=== PATIENT | male | born 1930 | race Caucasian/White ===

== ENCOUNTER 2018-10-19 16:16 | Emergency (ER) | payer MEDICARE, BC ==
[~2018-10-19] VITALS: Ht 167.6 cm; Wt 79.1 kg
[~2018-10-19 16:16] MED LIST: ZOFRAN ODT4 MG SL
[2018-10-19] MEDS ORDERED: PREDNISONE5 MG PO (16:41)
[2018-10-19] MEDS ORDERED: AMLODIPINE BESYL5 MG PO (16:41)
[2018-10-19] MEDS ORDERED: CLOPIDOGREL75 MG PO (16:42)
[2018-10-19] MEDS ORDERED: ATORVASTATIN CA40 MG PO (16:42)
[2018-10-19] MEDS ORDERED: FINASTERIDE5 MG PO (16:42)
[2018-10-19] MEDS ORDERED: CARVEDILOL3.125 MG PO (16:42)
[2018-10-19] MEDS ORDERED: LISINOPRIL10 M1 PO (16:42)
[2018-10-19] MEDS ORDERED: LEVOTHYROXIN25 MC1 PO (16:43)
[2018-10-19 17:20] VITALS: BP 137/63
== END 2018-10-19 17:20 | disposition home or self-care (01) ==
LOC: ED 16:16
DX: S51.011A Laceration without foreign body of right elbow, initial encounter (principal); I10 Essential (primary) hypertension; W00.0XXA Fall on same level due to ice and snow, initial encounter; Y92.524 Gas station as the place of occurrence of the external cause; Z86.73 Personal history of transient ischemic attack (TIA), and cerebral infarction without residual deficits

== ENCOUNTER 2018-11-17 14:42 | Observation (INO) | payer MEDICARE, BC ==
[~2018-11-17] VITALS: Ht 167.6 cm; Wt 65.0 kg
[~2018-11-17 14:42] MED LIST changes: +AMLODIPINE BESYL5 MG PO; +ATORVASTATIN CA40 MG PO; +CARVEDILOL3.125 MG PO; +CLOPIDOGREL75 MG PO; +FINASTERIDE5 MG PO; +LEVOTHYROXIN25 MC1 PO; +LISINOPRIL10 M1 PO; +PREDNISONE5 MG PO
--- NOTE | 2018-11-17 15:15 | NUR ---
INFORMED OF BRADYCARDIA.
--- NOTE | 2018-11-17 15:20 | NUR ---
PATIENT REPORTS BEING AT HOME WHEN HE BECAME WEAK, DENIES LOC OR FALLING. IS ALERT AND ORIENTED X4, DENIES ANY CHEST PAIN OR SOB. BLOOD GLUCOSE 88. SB ON INTEGRATION ANALYST. AT BEDSIDE FOR EXAM.
[2018-11-17 15:43] LABS: HEMATOCRIT 32.5 % (39.0-50.0); HEMOGLOBIN 10.8 g/dl (14.0-18.0); IMMATURE GRANULOCYTES 0.6 % (0.0-5.0); MEAN CELL VOLUME 98.8 fL CALC (80.0-100.0); MEAN CORPUSCULAR HGB 32.8 pG CALC (26.0-32.0); MEAN CORPUSCULAR HGB CONC 33.2 g/L CALC (32.0-36.0); NEUT# 9.3 thou/uL (1.82-7.42); RED BLOOD COUNT 3.29 mill/uL (4.70-6.10)
[2018-11-17 15:55] LABS: ALBUMIN 3.4 g/dL (3.2-5.0); ALKALINE PHOSPHATASE 70 u/l (38-126); ANION GAP 12 (6-22 (CALC)); BILIRUBIN, TOTAL 0.3 mg/dL (0.0-1.4); BUN 28 mg/dL (8-23); BUN/CREATININE RATIO 23 (12-20 (CALC)); CARBON DIOXIDE 23 mmol/l (22-30); CHLORIDE 102 mmol/l (95-108); CREATININE 1.2 mg/dL (0.7-1.3); GFR 57 ML/MIN (>=60 (CALC)); GFR FOR AFR.AMER. > 60 ML/MIN (>=60 (CALC)); POTASSIUM 3.6 mmol/l (3.5-5.1); SGOT/AST 24 u/l (19-48); SODIUM 133 mmol/l (137-146); TOTAL PROTEIN 6.3 g/dL (6.3-8.2)
[2018-11-17 16:03] LABS: INTERNATIONAL NORMALIZED RATIO 0.9 RATIO (0.7-1.3); PROTHROMBIN TIME 9.9 SECONDS (9.0-12.5)
[2018-11-17] MEDS ORDERED: SG ASA LOW81 M1 PO (16:32)
[2018-11-17] MEDS ORDERED: AGGRENOX 200/251 CAP PO (16:33)
--- NOTE | 2018-11-17 16:35 | NUR ---
MED REC COMPLETED WITH PATIENT.
--- NOTE | 2018-11-17 16:53 | NUR ---
ORTHOSTATIC BP OBTAINED, DENIES ANY WEAKNESS, DIZZINESS, OR BEING LIGHTHEADED. STATES "I DONT FEEL LIKE I DID EARLIER." PATIENT UPDATED ON PLAN OF CARE AND WAIT TIME. VERBAL UNDERSTANDING. FAMILY AT BEDSIDE, WILL CONTINUE TO MONITOR.
--- NOTE | 2018-11-17 18:14 | NUR ---
PATIENT ASSISTED TO SIDE OF BED TO USE URINAL. 425 ML OF URINE OUT. DENIES ANY DIZZINESS OR LIGHTHEADEDNESS UPON STANDING. UPDATED ON WAIT TIME. WILL CONTINUE TO MONITOR.
--- NOTE | 2018-11-17 18:20 | NUR ---
AT BEDSIDE TO DISCUSS RESULTS AND ADMIT.
--- NOTE | 2018-11-17 19:03 | NUR ---
REPORT CALLED TO DENG GARCÍA. REQUEST TO CALL PRIOR TO TRANSPORT. WAITING ON FLOOR ORDERS. REPORTS GIVEN TO DENG HARRIS. CARE RELINQUISHED.
--- NOTE | 2018-11-17 19:05 | NUR ---
PT. AWAITING TO BE ADMITTED UPSTAIRS.
--- NOTE | 2018-11-17 19:50 | NUR ---
PT. TAKEN TO [place] FLOOR VIA STRETCHER, NO C/O.
[2018-11-17 20:45] VITALS: BP 171/73
--- NOTE | 2018-11-17 21:00 | NUR ---
PATIENT ADMITTED FROM ER VIA STRETCHER WITH ER STAFF IN ATTENDANCE. PATIENT AMB TO THE STANDING SCALE AND THEN TO BED-STEADY ON HIS FEET. PATIENT IS AWAKE ALERT AND ORIENTEDX3. PATIENT STATES THAT HE WAS HOME TODAY BEFORE LUNCH AND SUDDENLY BROKEOUT INTO A COLD SWEAT AND BECAME EXTREMELY WEAK. SAT DOWN AND CALLED 911-WAS BROUGHT TO THE ER FOR EVAL. PATIENT DOES LIVE ALONE. TELE MONITOR IN PLACE. IV SITE TO LEFT FOREARM INTACT AND APPEARS HEALTHY AT THIS TIME. LUNGS ARE CLEAR. ABD IS SOFT-BS+. NO PEDAL EDEMA NOTED. PULSE ARE PRESENT. PATIENT ORIENTED TO ROOM AND SURROUDINGS. INSTRUCTED ON USE OF NURSE CALL LIGHT SYSTEM, TV REMOTE AND TELEPHONE. SAFETY PRECAUTIONS REVIEWED WITH THE PATIENT. PATIENT ATE DINNER THAT THE FAMILY BROUGHT IN. DENIES ANY PAIN AT THIS TIME. CALL LIGHT IN REACH. WILL CONT TO MONITOR.
[2018-11-17 22:04] VITALS: BP 139/68
[2018-11-17 23:35] VITALS: BP 133/79
--- NOTE | 2018-11-18 00:27 | NUR ---
RESTING IN BED WITH NO COMPLAINTS. TELE MONITOR IN PLACE. TROP DRAWN ORDERED. CALL LIGHT IN REACH. WILL CONT TO MONITOR.
[2018-11-18 04:10] VITALS: BP 129/72
--- NOTE | 2018-11-18 04:27 | NUR ---
PATIENT RESTING IN BED AT THIS TIME-APPEARS SLEEPING WITH EYES CLOSED-POSITIONED ON LEFT SIDE. RESP ARE EVEN AND UNLABORED. TELE MONITOR IN PLACE. CALL LIGHT IN REACH. WILL CONT TO MONITOR.
--- NOTE | 2018-11-18 07:00 | NUR ---
REPORT RECEIVED FROM DENG GARCÍA;PT RESTING IN SEMI FOWLERS POSITION;RESPIRATIONS EVEN AND UNLABORED ON RA;INTRODUCED SELF TO PT AND POC DISCUSSED;PT ALERT AND ORIENTED X3;PT ASSISTED TO RESTROOM AND HAD SMALL/BROWN BM;RE-POSITIONED BACK INTO BED;PT ENCOURAGED TO CALL FOR ASSISTANCE IF NEEDED;FALL PRECAUTIONS IN PLACE WITH CALL LIGHT IN REACH;WILL CONTINUE TO MONITOR
[2018-11-18 08:10] VITALS: BP 126/69
--- NOTE | 2018-11-18 08:10 | NUR ---
PT RESTING IN SEMI FOWLERS POSITION;VS OBTAINED AND ASSESSMENT COMPLETED;PT ALERT AND ORIENTED X3;PT DENIES ANY CURRENT PAIN OR DISCOMFORTS,PAIN SCALE AND REPORTING EDUCATED;RESPIRATIONS EVEN AND UNLABORED ON RA,CLEAR LUNG SOUNDS NOTED;ABDOMEN SOFT ON PALPATION AND ACTIVE IN ALL 4 QUADRANTS;STRONG PEDAL PULSES;EMS #18G TO LEFT FOREARM FLUSHED AND PATENT,SITE APPEARS HEALTHY;PT EDUCATED ON EMS IV SITE EXPIRATION AND VERBALIZES UNDERSTANDING;TELE MONITORING IN PLACE;PT DENIES ANY OTHER CURRENT NEEDS AT THIS TIME AND IS ENCOURAGED TO CALL FOR ASSISTANCE IF NEEDED;FALL PRECAUTIONS IN PLACE WITH CALL LIGHT IN REACH;WILL CONTINUE TO MONITOR
[2018-11-18 08:15] VITALS: BP 151/71
[2018-11-18 08:20] VITALS: BP 119/67
--- NOTE | 2018-11-18 08:20 | NUR ---
ORTHOSTATIC BP TAKEN AT THIS TIME;SUPINE BP 126/69 HR 73.SITTING 151/71 HR 71.STANDING BP 119/67 HR 92. PT ASYMPTOMATIC AT THIS TIME DENYING DIZZINESS.WILL CONTINUE TO MONITOR
--- NOTE | 2018-11-18 11:15 | NUR ---
PT AMBULATED WITH 1 PERSON ASSIST AND VOIDED CLEAR/YELLOW URINE;REPOSITIONED BACK INTO BED;RESPIRATIONS EVEN AND UNLABORED ON RA;PT DENIES ANY CURRENT PAIN OR NEEDS;TELE MONITORING IN PLACE;ENCOURAGED PT TO CALL FOR ASSISTANCE IF NEEDED;FALL PRECAUTIONS REMAIN IN PLACE WITH CALL LIGHT IN REACH;WILL CONTINUE TO MONITOR
[2018-11-18 11:25] VITALS: BP 142/60
--- NOTE | 2018-11-18 14:10 | NUR ---
ALL DISCHARGE INSTRUCTIONS PROVIDED TO PT.PT ENCOURAGED TO STOP TAKING COREG AND FOLLOW UP WITH PCP AND IN 1 WEEK;PT DENIES ANY CURRENT NEEDS OR QUESTIONS;IV SITE REMOVED WITH CATHETER INTACT;WHEELCHAIR TO BE PROVIDED FOR DISCHARGE HOME;AWAITING TRANSPORTATION BY DAUGHTER.WILL CONTINUE TO MONITOR
--- NOTE | 2018-11-18 15:02 | NUR ---
Discharge instructions given. Patient verbalizes understanding of same. Discharged in stable condition via Wheelchair to Home with family. All belongings sent with pt.
== END 2018-11-18 15:02 | disposition home or self-care (01) ==
LOC: ED 14:42 → ED-I 18:20 → ED 18:32 → MS2 18:33
PROVIDERS: Emergency Medicine; ADMIT Internal Medicine; ATTEND Internal Medicine
DX: R55 Syncope and collapse (principal); R00.1 Bradycardia, unspecified; I10 Essential (primary) hypertension; I25.10 Atherosclerotic heart disease of native coronary artery without angina pectoris; I44.0 Atrioventricular block, first degree; M35.3 Polymyalgia rheumatica; E78.5 Hyperlipidemia, unspecified; Z87.891 Personal history of nicotine dependence; Z95.1 Presence of aortocoronary bypass graft; Z86.73 Personal history of transient ischemic attack (TIA), and cerebral infarction without residual deficits; Z95.2 Presence of prosthetic heart valve; Z79.52 Long term (current) use of systemic steroids

== ENCOUNTER 2019-01-14 13:00 | Outpatient (RCR) | payer MEDICARE, BC ==
[~2019-01-14 13:00] MED LIST changes: +AGGRENOX 200/251 CAP PO; +SG ASA LOW81 M1 PO
== END 2019-01-14 14:05 | disposition still patient (30) ==
LOC: CR 13:00
PROVIDERS: ATTEND Internal Medicine Cardiovascular Disease
DX: I35.0 Nonrheumatic aortic (valve) stenosis (principal); Z95.2 Presence of prosthetic heart valve